=== PATIENT | female | born 1980 | race Caucasian/White ===

== ENCOUNTER 2017-06-18 09:24 | Emergency (ER) | payer MEDICAID ==
[~2017-06-18] VITALS: Ht 165.1 cm; Wt 95.0 kg
[2017-06-18 09:55] VITALS: BP 127/89
== END 2017-06-18 10:00 | disposition home or self-care (01) ==
LOC: ER 09:25
DX: R53.83 Other fatigue (principal); Z59.0 Homelessness
CPT/HCPCS: 99283

== ENCOUNTER 2020-03-17 19:44 | Emergency (ER) | payer MEDICAID ==
[~2020-03-17] VITALS: Ht 165.1 cm; Wt 95.5 kg
[2020-03-17] MEDS ORDERED: haloperidol lactate 5mg/ml inj IM ONE (20:30)
[2020-03-17] MEDS ORDERED: diphenhydrAMINE 25mg capsule PO ONE (20:30)
[2020-03-17] MEDS ORDERED: LORazepam 1 MG tablet PO ONE (20:30)
[2020-03-17 20:51] VITALS: BP 142/83
== END 2020-03-17 20:52 | disposition home or self-care (01) ==
LOC: ER 19:45
DX: F41.9 Anxiety disorder, unspecified (principal); F31.9 Bipolar disorder, unspecified; Z72.89 Other problems related to lifestyle; Z59.0 Homelessness; Z56.0 Unemployment, unspecified
CPT/HCPCS: 96372; 99283; J1630; Q0163

== ENCOUNTER 2020-03-31 19:57 | Emergency (ER) | payer MEDICAID ==
[~2020-03-31] VITALS: Ht 165.1 cm; Wt 96.8 kg
[2020-03-31 20:05] VITALS: BP 122/92
--- NOTE | 2020-03-31 20:12 | NUR ---
Pt is exhibiting flight of ideas, tangential thoughts, she giggles inappropriately, but is pleasant and cooperative. Pt states that she is has locked her keys in her car and is trying to get ahold of [employer] to assist her. She states she has a place to stay tonight but first has to resolve her car issue so she can drive home.
[2020-03-31] MEDS ORDERED: diphenhydrAMINE 25mg capsule PO ONE (21:00)
[2020-03-31] MEDS ORDERED: LORazepam 1 MG tablet PO ONE (21:00)
[2020-03-31] MEDS ORDERED: haloperidol lactate 5mg/ml inj IM ONE (21:00)
== END 2020-03-31 21:22 | disposition home or self-care (01) ==
LOC: ER 19:57
DX: F30.9 Manic episode, unspecified (principal); Z72.89 Other problems related to lifestyle; Z56.0 Unemployment, unspecified; Z59.0 Homelessness
CPT/HCPCS: 96372; 99283; J1630; Q0163

== ENCOUNTER 2020-04-05 04:56 | Emergency (ER) | payer MEDICAID ==
[~2020-04-05] VITALS: Ht 165.1 cm; Wt 94.1 kg
[2020-04-05] MEDS ORDERED: LORazepam 2 mg/ml vial IM ONE (05:10)
[2020-04-05] MEDS ORDERED: diphenhydrAMINE 50 mg/ml inj IM ONE (05:10)
[2020-04-05] MEDS ORDERED: haloperidol lactate 5mg/ml inj IM ONE (05:10)
[2020-04-05 05:21] VITALS: BP 128/74
== END 2020-04-05 05:23 | disposition home or self-care (01) ==
LOC: ER 04:57
DX: F30.9 Manic episode, unspecified (principal); F31.9 Bipolar disorder, unspecified; Z59.0 Homelessness; Z56.0 Unemployment, unspecified
CPT/HCPCS: 99281